=== PATIENT | male | born 1970 | race African-American/Black ===

== ENCOUNTER 2017-06-18 05:35 | Emergency (ER) | payer MEDICAID ==
[~2017-06-18] VITALS: Ht 182.9 cm; Wt 91.0 kg
[2017-06-18 12:15] VITALS: BP 139/65
[2017-06-18] MEDS ORDERED: HYDROCODONE/ACETAMINOPHEN 5/325MG TABLET PO ONE (12:15)
[2017-06-18] MEDS ORDERED: KETOROLAC 60MG/2ML VIAL IM ONE (12:15)
== END 2017-06-18 13:05 | disposition home or self-care (01) ==
LOC: ER 05:35
DX: M54.5 Low back pain (principal); Z98.890 Other specified postprocedural states; Z87.828 Personal history of other (healed) physical injury and trauma
CPT/HCPCS: 96372; 99283; J1885